=== PATIENT | female | born 1940 | race Caucasian/White ===

== ENCOUNTER 2017-04-07 20:34 | Inpatient (IN) | payer MEDICARE, OTHER ==
[~2017-04-07] VITALS: Ht 152.4 cm; Wt 65.0 kg
[~2017-04-07 20:34] MED LIST: [UNRECOGNIZED DRUG - REMARK] PO
[2017-04-07] MEDS ORDERED: ALEN70TA14 PO (20:47)
[2017-04-07] MEDS ORDERED: SIMV20TA6 PO (20:47)
[2017-04-07] MEDS ORDERED: METF10002 PO (20:47)
[2017-04-07] MEDS ORDERED: LINA5TAB PO (20:47)
[2017-04-07] MEDS ORDERED: GLIP10TA9 PO (20:47)
[2017-04-07] MEDS ORDERED: LOSA50TA37 PO (20:47)
[2017-04-07] MEDS ORDERED: HYDR12.530 PO (20:47)
[2017-04-07] MEDS ORDERED: OMEP20CA10 PO (20:47)
[2017-04-07 20:53] LABS: GLUCOSE,POINT OF CARE 295 MG/DL (70-110)
[2017-04-07 21:02] LABS: BASOPHILS # (AUTO) 0.04 K/uL (0.00-0.20); BASOPHILS % (AUTO) 0.4 % (0.0-2.0); EOSINOPHILS # (AUTO) 0.08 K/uL (0.00-0.70); EOSINOPHILS % (AUTO) 0.98 % (1.0-6.0); HEMATOCRIT 34.1 % (36-46); HEMOGLOBIN 11.3 g/dL (12.0-16.0); LYMPHOCYTES # (AUTO) 2.3 K/uL (1.0-4.8); LYMPHOCYTES % (AUTO) 27.5 % (22.0-44.0); MEAN CORPUSCULAR HEMOGLOBIN 28.4 pg (26.0-34.0); MEAN CORPUSCULAR VOLUME 86 fL (80-100); MONOCYTES # (AUTO) 0.5 K/uL (0.1-1.0); MONOCYTES % (AUTO) 5.9 % (2.0-9.0); NEUTROPHILS # (AUTO) 5.6 K/uL (1.8-7.7); NEUTROPHILS % (AUTO) 65.3 % (40.0-70.0); PLATELET COUNT (AUTO) 218 K/uL (150-450); RED BLOOD CELL COUNT(AUTO) 3.97 MIL/uL (4.00-5.20); WHITE BLOOD COUNT (AUTO) 8.5 K/uL (4.5-11.0)
[2017-04-07 21:09] LABS: CALCIUM, TOTAL 8.1 mg/dL (8.8-10.5); CREATININE 1.55 mg/dL (0.60-1.30); POTASSIUM 4.6 mmol/L (3.5-5.1)
[2017-04-07 21:15] LABS: ALBUMIN 3.2 g/dL (3.4-5.0); BILIRUBIN,TOTAL 0.2 mg/dL (0.1-1.0); PROTHROMBIN TIME 10.2 SEC (9.4-11.6); TOTAL PROTEIN, SERUM 6.9 g/dL (6.4-8.2)
[2017-04-07] MEDS ORDERED: SODIUM CHLORIDE 0.9% 1,000 ML IV ONE (22:15)
[2017-04-07 23:15] LABS: APPEARANCE,URINE CLEAR (CLEAR); GLUCOSE, URINE (UA) >=1000 mg/dL (NEGATIVE); KETONES,URINE NEGATIVE (NEGATIVE); LEUKOCYTE ESTERASE ,URINE NEGATIVE (NEGATIVE); OCCULT BLOOD,URINE NEGATIVE (NEGATIVE); PH,URINE 6.5 (5.0-8.0); PROTEIN,URINE NEGATIVE (NEGATIVE)
[2017-04-07] MEDS ORDERED: BISACODYL 10 MG RECTAL RECTAL SUPPOSITORY PR PRN (23:15)
[2017-04-07] MEDS ORDERED: MAGNESIUM HYDROXIDE SUSPENSION 30 ML UDCUP PO PRN (23:15)
[2017-04-07] MEDS ORDERED: INSULIN ASPART 100 UNITS/ML SQ PRN (23:15)
[2017-04-07] MEDS ORDERED: HYDROCODONE/ACETAMINOPHEN 5-325 MG TABLET PO PRN ×2 (23:15)
[2017-04-07] MEDS ORDERED: ACETAMINOPHEN/CODEINE 300-30 MG TABLET PO PRN (23:15)
[2017-04-07] MEDS ORDERED: GLUCAGON,HUMAN RECOMBINANT 1 MG VIAL IM PRN (23:15)
[2017-04-07 23:17] LABS: ADD UA MICROSCOPIC YES
[2017-04-07 23:30] LABS: RBC,URINE None Seen /HPF (0-2); SQUAMOUS EPITHELIAL CELL,UR Few /LPF (None Seen); WBC,URINE 0-2 /HPF (0-5)
[2017-04-07] MEDS ORDERED: DEXTROSE 50%-WATER 25 GM/50 ML SYG IVP PRN (23:30)
[2017-04-07] MEDS ORDERED: MORPHINE SULFATE 4 MG/ML SYRINGE IVP ONE (23:30)
[2017-04-07] MEDS ORDERED: HydrALAZINE HCL 20 MG/ML VIAL IVP PRN (23:30)
[2017-04-08 00:22] VITALS: BP 149/70
[2017-04-08] MEDS: SODIUM CHLORIDE 0.9% 1,000 ML IV SCH ×2 (00:37→13:36)
[2017-04-08] MEDS: OxyCODONE HCL/ACETAMINOPHEN 5-325 MG TABLET PO PRN ×2 (00:37→11:22)
[2017-04-08] MEDS ORDERED: FentaNYL CITRATE-PF 100 MCG/2 ML VIAL IVP ONE (00:44)
[2017-04-08] MEDS ORDERED: KETAMINE HCL 50 MG/ML 10 ML VIAL IVP ONE (00:44)
[2017-04-08] MEDS ORDERED: MIDAZOLAM HCL 2 MG/2 ML VIAL IVP ONE (00:44)
[2017-04-08] MEDS ORDERED: PNEUMOCOCCAL VACCINE POLYVALENT 0.5 ML VIAL [PPSV23] IM ONE (03:15)
[2017-04-08] MEDS ORDERED: KETOROLAC TROMETHAMINE 60 MG/2 ML VIAL IM ONE (03:59)
[2017-04-08] MEDS ORDERED: PROPOFOL 1% 20 ML VIAL IVP ONE (03:59)
[2017-04-08 06:30] VITALS: BP 105/56
[2017-04-08] MEDS: INSULIN ASPART 100 UNITS/ML SQ PRN ×2 (06:56→21:10)
[2017-04-08 07:06] LABS: GLUCOSE COMMENT 1 Received Meds; GLUCOSE,POINT OF CARE 179 MG/DL (70-110)
[2017-04-08 08:17] VITALS: BP 125/59
[2017-04-08] MEDS: PANTOPRAZOLE SODIUM 40 MG DR TABLET PO SCH (09:00)
[2017-04-08 09:11] LABS: BILIRUBIN,TOTAL 0.4 mg/dL (0.1-1.0); CALCIUM, TOTAL 8.2 mg/dL (8.8-10.5); CREATININE 0.93 mg/dL (0.60-1.30); POTASSIUM 5.4 mmol/L (3.5-5.1); TOTAL PROTEIN, SERUM 6.6 g/dL (6.4-8.2)
[2017-04-08 11:38] VITALS: BP 118/82
[2017-04-08 12:02] LABS: GLUCOSE,POINT OF CARE 103 MG/DL (70-110)
[2017-04-08] MEDS ORDERED: RINGERS SOLUTION,LACTATED 1,000 ML IV ONE (16:35)
[2017-04-08] MEDS ORDERED: BUPIVACAINE/EPI/PF 0.5% 30 ML VIAL ONE (17:31)
[2017-04-08 20:00] VITALS: BP 128/56
[2017-04-08 21:12] LABS: GLUCOSE COMMENT 1 Received Meds; GLUCOSE,POINT OF CARE 154 MG/DL (70-110)
[2017-04-08] MEDS: MORPHINE SULFATE 2 MG/ML SYRINGE IVP PRN (22:36)
[2017-04-08 22:40] VITALS: BP 133/73
[2017-04-08] MEDS: CeFAZolin 1 GM/DEXTROSE 50 ML IV SCH (23:59)
[2017-04-09 03:24] VITALS: BP 140/54
[2017-04-09] MEDS: OxyCODONE HCL/ACETAMINOPHEN 5-325 MG TABLET PO PRN ×3 (03:42→19:52)
[2017-04-09] MEDS: SODIUM CHLORIDE 0.9% 1,000 ML IV SCH (04:24)
[2017-04-09 04:33] LABS: GLUCOSE COMMENT 1 Received Meds; GLUCOSE,POINT OF CARE 186 MG/DL (70-110)
[2017-04-09] MEDS: INSULIN ASPART 100 UNITS/ML SQ PRN ×4 (05:45→21:46)
[2017-04-09] MEDS: ENOXAPARIN SODIUM 30 MG/0.3 ML PF SYRINGE SQ SCH ×2 (08:22→19:53)
[2017-04-09] MEDS: PANTOPRAZOLE SODIUM 40 MG DR TABLET PO SCH (08:22)
[2017-04-09] MEDS: CeFAZolin 1 GM/DEXTROSE 50 ML IV SCH ×2 (08:22→15:45)
[2017-04-09 09:22] VITALS: BP 95/42
[2017-04-09 11:21] LABS: GLUCOSE COMMENT 1 Received Meds; GLUCOSE,POINT OF CARE 362 MG/DL (70-110)
[2017-04-09 11:25] VITALS: BP 125/62
[2017-04-09] MEDS: MORPHINE SULFATE 2 MG/ML SYRINGE IVP PRN ×2 (11:27→21:43)
[2017-04-09 15:14] VITALS: BP 123/59
[2017-04-09 17:12] LABS: GLUCOSE,POINT OF CARE 318 MG/DL (70-110)
[2017-04-09 21:01] VITALS: BP 141/82
[2017-04-09 21:42] LABS: GLUCOSE,POINT OF CARE 316 MG/DL (70-110)
[2017-04-09 23:30] VITALS: BP 111/65
[2017-04-10] MEDS: CeFAZolin 1 GM/DEXTROSE 50 ML IV SCH ×2 (00:30→08:03)
[2017-04-10 04:04] VITALS: BP 147/79
[2017-04-10] MEDS: OxyCODONE HCL/ACETAMINOPHEN 5-325 MG TABLET PO PRN ×3 (04:12→15:45)
[2017-04-10] MEDS: INSULIN ASPART 100 UNITS/ML SQ PRN ×2 (06:44→11:54)
[2017-04-10 06:46] LABS: GLUCOSE,POINT OF CARE 230 MG/DL (70-110)
[2017-04-10] MEDS: PANTOPRAZOLE SODIUM 40 MG DR TABLET PO SCH (08:03)
[2017-04-10] MEDS: ENOXAPARIN SODIUM 30 MG/0.3 ML PF SYRINGE SQ SCH (08:03)
[2017-04-10 08:14] VITALS: BP 109/58
[2017-04-10 11:08] VITALS: BP 127/72
[2017-04-10 11:52] LABS: GLUCOSE,POINT OF CARE 262 MG/DL (70-110)
[2017-04-10 15:26] VITALS: BP 117/72
== END 2017-04-10 16:00 | DRG 482 ==
LOC: EMS 20:38 → 6N 23:23 → 4E 04-08 15:00
PROVIDERS: ADMIT Internal Medicine; ATTEND Internal Medicine
PROC: 0QS604Z Reposition Right Upper Femur with Internal Fixation Device, Open Approach (ICD-10-PCS; principal; 2017-04-07)
PROC: 3E0234Z Introduction of Serum, Toxoid and Vaccine into Muscle, Percutaneous Approach (ICD-10-PCS; 2017-04-08)
DX: S72.141A Displaced intertrochanteric fracture of right femur, initial encounter for closed fracture (principal); E87.5 Hyperkalemia; E11.9 Type 2 diabetes mellitus without complications; E86.0 Dehydration; D64.9 Anemia, unspecified; I10 Essential (primary) hypertension; G89.29 Other chronic pain; E78.00 Pure hypercholesterolemia, unspecified; M85.80 Other specified disorders of bone density and structure, unspecified site; M25.559 Pain in unspecified hip; W01.0XXA Fall on same level from slipping, tripping and stumbling without subsequent striking against object, initial encounter; M54.9 Dorsalgia, unspecified; Z23 Encounter for immunization; Y93.89 Activity, other specified; Y92.89 Other specified places as the place of occurrence of the external cause; Y99.8 Other external cause status
CPT/HCPCS: 51702; 73502; 82962; 87081; 93005; 93306; 96374; 97110; 97116; 97162; 97166; 97530; 97535; 99285; J0690; J1650; J1885; J2250; J2270; J2704; J3010; J3490; J7030; J7120